=== PATIENT | male | born 1960 | race Native Hawaiian/Other Pacific Islander ===

== ENCOUNTER 2018-12-03 19:00 | Outpatient (CLI) | payer OTHER | END 2018-12-03 19:02 | disposition short-term general hospital (02) | LOC: AMB 19:00 | DX: R07.89 Other chest pain (principal); F10.129 Alcohol abuse with intoxication, unspecified | CPT/HCPCS: A0425; A0427 ==

== ENCOUNTER 2018-12-03 19:16 | Emergency (ER) | payer OTHER ==
[~2018-12-03] VITALS: Ht 175.3 cm; Wt 72.6 kg
[2018-12-03 19:16] VITALS: BP 118/78; TEMP 98.1
== END 2018-12-03 19:30 | disposition home or self-care (01) ==
LOC: ED 19:16
DX: T85.9XXA Unspecified complication of internal prosthetic device, implant and graft, initial encounter (principal); F10.129 Alcohol abuse with intoxication, unspecified
CPT/HCPCS: 99281

== ENCOUNTER 2018-12-16 21:46 | Outpatient (CLI) | payer OTHER | END 2018-12-16 21:51 | disposition short-term general hospital (02) | LOC: AMB 21:46 | DX: R07.9 Chest pain, unspecified (principal) | CPT/HCPCS: A0425; A0429 ==

== ENCOUNTER 2018-12-16 21:58 | Emergency (ER) | payer OTHER ==
[~2018-12-16] VITALS: Ht 175.3 cm; Wt 72.6 kg
[2018-12-16 22:59] LABS: PLATELET COUNT 161 K/uL (142-355)
[2018-12-16 23:04] LABS: POTASSIUM 3.5 mmol/L (3.6-5.2)
[2018-12-17 01:30] VITALS: BP 116/62; TEMP 97.8
== END 2018-12-17 01:30 | disposition home or self-care (01) ==
LOC: ED 21:58
PROVIDERS: Student in an Organized Health Care Education/Training Program
DX: R07.89 Other chest pain (principal)
CPT/HCPCS: 36415; 80048; 84484; 85027; 93005; 99284

== ENCOUNTER 2018-12-27 16:02 | Emergency (ER) | payer OTHER ==
[~2018-12-27] VITALS: Ht 175.3 cm; Wt 83.9 kg
[2018-12-27 16:56] LABS: PLATELET COUNT 159 K/uL (142-355)
[2018-12-27 16:57] LABS: POTASSIUM 3.9 mmol/L (3.6-5.2)
[2018-12-27] MEDS ORDERED: OXYC20TA3 PO (17:22)
[2018-12-27] MEDS ORDERED: CARV3.12 PO (17:22)
[2018-12-27] MEDS ORDERED: ZOLOFT25 MG PO (17:22)
[2018-12-27] MEDS ORDERED: SPIRONOLACT25 MG PO (17:23)
[2018-12-27] MEDS ORDERED: TRAZODONE HYDR150 MG PO (17:23)
[2018-12-27] MEDS ORDERED: IBU800 MG PO (17:23)
[2018-12-27] MEDS ORDERED: SEROQUEL400 MG PO (17:24)
[2018-12-27] MEDS ORDERED: LISI10TA11 PO (17:25)
[2018-12-27] MEDS ORDERED: FUROSEMIDE20 MG PO (17:25)
[2018-12-27] MEDS ORDERED: NEURONTIN800 MG PO (17:26)
[2018-12-28 06:46] VITALS: BP 160/104; TEMP 98.1
[2018-12-28] MEDS ORDERED: TRAZODONE HYDR150 MG PO (12:43)
== END 2018-12-28 10:30 | disposition other institution (70) ==
LOC: ED 16:02
PROVIDERS: Family Medicine
DX: R45.851 Suicidal ideations (principal); F32.89 Other specified depressive episodes
CPT/HCPCS: 80053; 80307; 80320; 80329; 81000; 85027; 93005; 99285